=== PATIENT | female | born 1950 | race Native Hawaiian/Other Pacific Islander ===

== ENCOUNTER → 2020-08-03 | Emergency (ER) | payer OTHER | LOC: ED 15:30 | DX: Z20.828 Contact with and (suspected) exposure to other viral communicable diseases (principal); M54.9 Dorsalgia, unspecified | CPT/HCPCS: 99281 ==

== ENCOUNTER 2020-12-22 08:30 | Outpatient (CLI) | payer OTHER | END 2020-12-22 21:25 | disposition home or self-care (01) | LOC: RESP 08:30 | PROVIDERS: ATTEND Internal Medicine Sleep Medicine | DX: Z76.89 Persons encountering health services in other specified circumstances (principal); J45.909 Unspecified asthma, uncomplicated ==